=== PATIENT | female | born 1970 | race Caucasian/White ===

== ENCOUNTER 2023-04-21 16:30 | Outpatient (CLI) | payer OTHER, SELFPAY ==
--- NOTE | 2023-04-21 17:34 | CT_ITS ---
WS: [id number] CT ABDOMEN PELVIS TECHNIQUE: Contrast-enhanced CT of the abdomen and pelvis with coronal and sagittal reformatted image s. CLINICAL INFORMATION: HEMATOCHEZIA,BACK PAIN, NEPHROLITHIASIS, CHOLELITHIOSIS, COMPARISON: None. DLP: 937.[address] scans at [facility] use at least one of these dose optimization techniques: automated e xposure control; mA and/or kV adjustment per patient size (includes targeted exams where dose is matc hed to clinical indication); or iterative reconstruction. FINDINGS: Diffuse fatty infiltration of the liver. A few small hepatic cysts in both hepatic lobes the largest measuring 12 mm. Normal portal vein and splenic vein. Normal spleen. Normal GE junction. Normal dann l vein and splenic vein. Gallbladder is contracted. Cholelithiasis. Normal GE junction. Lung bases are well aerated. Adrenal glands are normal. Normal renal parenchymal enhancement. No hydr onephrosis. Bilateral simple renal cysts. Largest in the LEFT measures approximately 13 mm. Normal ca liber abdominal aorta. Normal sigmoid colon. Normal appendix in the RIGHT lower quadrant. Diastases o f the rectus abdominis. Fat-containing umbilical hernia. Grade 1 anterolisthesis L4 on L5. Slight ret rolisthesis L3 on L4. CT/CT abdomen pelvis w con* [id number] IMPRESSION: 1. Mild diffuse fatty infiltration liver with incidental hepatic cysts as desc ribed above. 2. Gallbladder is contracted. Cholelithiasis. 3. Bilateral medullary nephrocalcinosis. No hydronephrosis. Incidental bilater al renal cysts. 4. Normal appendix in the RIGHT lower quadrant. 5. Rectus abdominis diastases. Small fat-containing umbilical hernia. 6. No other acute findings.
[2023-04-21] MEDS: iohexol 350 mg/mL 500 mL Btl (per mL) IV (17:54)
== END 2023-04-21 16:31 | disposition home or self-care (01) ==
PROVIDERS: PCP Nurse Practitioner Family; Visit Provider Surgery
DX: K92.1 Melena (principal); M54.9 Dorsalgia, unspecified; K80.20 Calculus of gallbladder without cholecystitis without obstruction; K76.0 Fatty (change of) liver, not elsewhere classified; K76.89 Other specified diseases of liver; E83.59 Other disorders of calcium metabolism; N29 Other disorders of kidney and ureter in diseases classified elsewhere; K42.9 Umbilical hernia without obstruction or gangrene; Z87.442 Personal history of urinary calculi
CPT/HCPCS: 74177; Q9967

== ENCOUNTER 2025-08-02 12:55 | Outpatient (CLI) | payer MEDICAID, SELFPAY ==
[2025-08-02 13:18] LABS: Troponin T (5th) Once < 6 ng/L (0-10)
== END 2025-08-02 12:56 | disposition home or self-care (01) ==
PROVIDERS: PCP Nurse Practitioner Family; Visit Provider Nurse Practitioner Family
DX: R07.89 Other chest pain (principal)
CPT/HCPCS: 84484

== ENCOUNTER 2025-08-14 08:11 | Oncology outpatient (recurring) (ONCR) | payer MEDICAID, SELFPAY ==
[2025-08-14] MEDS: ferric derisomaltose 1,000 MG in sodium chloride 0.9% (100 ml) 100 ML 330 MG IV (10:21)
[2025-08-14 10:52] VITALS: BP 125/76; PULSE 73; RESP 17; TEMP 36.5; O2SAT 96
== END 2025-08-15 23:59 | disposition home or self-care (01) ==
PROVIDERS: PCP Nurse Practitioner Family; Visit Provider Internal Medicine Medical Oncology
DX: D50.9 Iron deficiency anemia, unspecified (principal); Z79.899 Other long term (current) drug therapy
CPT/HCPCS: 96365; J1437

== ENCOUNTER 2025-10-24 14:31 | Oncology outpatient (recurring) (ONCR) | payer MEDICAID, SELFPAY ==
[2025-10-23 14:01] LABS: Hematocrit 44.2 % (36-47); Hemoglobin 13.70 g/dL (11.27-16.99); Mean Corpuscular HGB Conc 31.0 g/dL (30-55); Mean Corpuscular Hemoglobin 27.0 pg (27-33); Mean Corpuscular Volume 87.0 fl (85-98); Nucleated Red Blood Cells % 0 %; Platelet Count 297 10^3/cmm (157-399); Red Blood Count 5.08 10^6/uL (3.85-5.65); White Blood Count 7.80 10^3/uL (3.29-11.43)
[2025-10-23 14:27] LABS: Alanine Aminotransferase 14 U/L (0-33); Albumin Level 4.1 g/dL (3.5-5.2); Alkaline Phosphatase 96 U/L (35-105); Anion Gap 15.0 (5-19); Aspartate Amino Transferase 16 U/L (0-32); Blood Urea Nitrogen 19 mg/dL (6-20); Calcium 9.1 mg/dL (8.5-10.5); Carbon Dioxide 25 mmol/L (22-29); Chloride 107 mmol/L (98-107); Ferritin 194 ng/mL (15-150); Globulin 3.4 g/dL (1.3-4.6); Glucose 94 mg/dL (65-115); Iron 71 ug/dL (37-145); Osmolality Calculated 298 mOsm/kg (285-295); Potassium 4.0 mmol/L (3.5-5.1); Sodium 143 mmol/L (136-145); Total Iron Binding Capacity 234 mcg/dl; Total Protein 7.5 g/dL (6.6-8.7); Unsaturated Iron Binding 163 ug/dL (112-347)
[2025-10-23 14:42] LABS: Vitamin B12 349 pg/mL (232-1245)
[2025-10-24 15:45] LABS: Magnesium 2.1 mg/dL (1.7-2.3)
== END 2025-11-15 23:59 | disposition home or self-care (01) ==
PROVIDERS: Nurse Practitioner; PCP Nurse Practitioner Family; Visit Provider Internal Medicine Medical Oncology
DX: D50.9 Iron deficiency anemia, unspecified (principal); Z79.899 Other long term (current) drug therapy
CPT/HCPCS: 36415; 80053; 82607; 82728; 82746; 83540; 83550; 83735; 85025